=== PATIENT | female | born 1985 | race Two or more races ===

== ENCOUNTER 2016-07-23 16:13 | Emergency (ER) | payer OTHER ==
[2016-07-23 16:21] VITALS: BP 127/62; PULSE 88; TEMP 98.2; BMI 26.5
[2016-07-23] MEDS ORDERED: LORATADINE 10 MG TABLET PO ONE (17:03)
[2016-07-23] MEDS ORDERED: LORATADINE 10 MG TABLET ONE (17:06)
--- NOTE | 2016-07-23 17:07 | PDOC ---
History of Present Illness - General Chief Complaint: Migraine Headache Stated Complaint: HEADACHE Time Seen by Provider: 07/23/16 16:36 - History of Present Illness Initial Comments: 07/23/16 17:17 CHIEF COMPLAINT: headache, nausea in HISTORY OF PRESENT ILLNESS: 31 yo 3 mo female presents to [facility] with headache and nausea. Patient also reports having a "lump" to the right side of her neck x 5 days that her primary care doctor said was a lymph node. She states "it feels like a sinus headache" but denies any congestion or runny nose but does state that sometimes she "feels like she can't breathe at night". She denies any vomiting or diarrhea, fever, chills. No recent travel or sick contacts. PAST MEDICAL HISTORY: Denies past medical history FAMILY HISTORY: Denies SOCIAL HISTORY: Denies tobacco, alcohol, illicit drug use. SURGICAL HISTORY: Denies ALLERGIES: No known drug allergies REVIEW OF SYSTEMS General/Constitutional: Denies fever or chills. Denies weakness, weight change. HEENT: Denies change in vision. Denies ear pain or discharge. Denies sore throat. Cardiovascular: Denies chest pain or shortness of breath. Respiratory: Denies cough, wheezing, or hemoptysis. Gastrointestinal: Denies nausea, vomiting, diarrhea or constipation. Denies rectal bleeding. Genitourinary: Denies dysuria, frequency, or change in urination. Musculoskeletal: Denies joint or muscle swelling or pain. Denies neck or back pain. Skin and breasts: Denies rash or easy bruising. Neurologic: Denies headache, vertigo, loss of consciousness, or loss of sensation. PHYSICAL EXAM General Appearance: Well-appearing, appropriately dressed. No apparent distress , no intoxication. HEENT: EOMI, PERRLA, normal ENT inspection, normal voice, TMs normal, pharynx normal. No conjunctival pallor. No photophobia, scleral icterus. Neck: Nodule to R lateral neck, mobile. Supple. Trachea midline. No tenderness , rigidity, carotid bruit, stridor, or thyromegaly. Respiratory/Chest: Lungs CTAB. No shortness of breath, chest tenderness, respiratory distress, accessory muscle use. No crackles, rales, rhonchi, stridor , wheezing, dullness Cardiovascular: RRR. S1, S2. No JVD, murmur, bradycardia, tachycardia. Gastrointestinal/Abdominal: Normal bowel sounds. Abdomen soft, non-distended. No tenderness or rebound tenderness. Musculoskeletal/Extremities: Normal inspection. FROM of all extremities, normal capillary refill. Pelvis Stable. No CVA tenderness. No tenderness to extremities, pedal edema, swelling, erythema or deformity. Integumentary: Appropriate color, dry, warm. 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 Fully oriented, alert. Appropriate mood/affect. Motor strength 5/5. No appreciable EOM palsy, facial droop or sensory deficit. 07/23/16 18:14 Past History - Past Medical History Allergies/Adverse Reactions: Allergies Allergy/AdvReac Type Severity Reaction Status Date / Time No Known Allergies Allergy Verified 01/10/13 15:56 Home Medications: Ambulatory Orders Doxylamine/Pyridoxine HCl [Diclegis Dr 10-10 mg Tablet] 1 each PO ASDIR PRN #20 tablet. 07/23/16 Loratadine [Claritin -] 10 mg PO DAILY #10 tablet 07/23/16 Asthma: Yes - Immunization History Immunization Up to Date: Yes - Psycho/Social/Smoking Cessation Hx Anxiety: No Suicidal Ideation: No Smoking Status: No Smoking History: Never smoked Have you smoked in the past 12 months: No Number of Cigarettes Smoked Daily: 0 Information on smoking cessation initiated: No Hx Alcohol Use: No Drug/Substance Use Hx: No *Physical Exam - Vital Signs Last Vital Signs Temp Pulse Resp BP Pulse Ox 98.2 F 88 20 127/62 96 07/23/16 16:19 07/23/16 16:19 07/23/16 16:19 07/23/16 16:19 07/23/16 16:19 Medical Decision Making - Medical Decision Making 07/23/16 18:14 31 yo 3 mo female presents to [facility] with headache and nausea. Patient vital signs are stable. -10mg Claritin po daily -Diclegis po PRN nausea/vomiting Advised patient to take medications as prescribed. Advised patient to follow up with primary care doctor for further evaluation and possible biopsy of nodule. Advised patient of signs and symptoms for return to ER. PAtient verbalized undertanding and agrees to plan. *DC/Admit/Observation/Transfer Diagnosis at time of Disposition: Nausea/vomiting in Headache in Qualifiers: Trimester: first trimester Qualified Code(s): O26.891 - Other specified related conditions, first trimester - Discharge Dispostion Admit: No - Prescriptions Prescriptions: Loratadine [Claritin -] 10 mg PO DAILY #10 tablet Doxylamine/Pyridoxine HCl [Diclegis Dr 10-10 mg Tablet] 1 each PO ASDIR PRN #20 tablet.dr PRN Reason: Nausea And/Or Vomiting - Referrals Referrals: Lisandro Lomax [Primary Care Provider] - Carlos Taveras MD [Staff Physician] - - Patient Instructions Printed Discharge Instructions: Nausea of (Alternative Therapy), DI for Sinus Headache Additional Instructions: Please take medications as prescribed. You may try using the saline wash or netipot to help clear your sinuses along with the warm compress. Follow up with your primary care doctor for further evaluation of the nodule on your neck ; you may need a biopsy if it persists. As discussed, if you experience headache with palpitations and/or high blood pressure, persistent vomiting and inability to tolerate fluids, or any new or worsening symptoms, please return to the ER immediately. - Post Discharge Activity
== END 2016-07-23 18:29 | disposition home or self-care (01) ==
LOC: JERFT 16:13
DX: O26.891 Other specified pregnancy related conditions, first trimester (principal); R11.2 Nausea with vomiting, unspecified
CPT/HCPCS: 99281-25

== ENCOUNTER 2016-11-12 16:36 | Emergency (ER) | payer OTHER ==
[2016-11-12 16:54] VITALS: BMI 28.7
--- NOTE | 2016-11-12 19:36 | PDOC ---
History of Present Illness - General Chief Complaint: Chest Pain Stated Complaint: CHEST PAIN Time Seen by Provider: 11/12/16 19:13 History Source: Patient - History of Present Illness Initial Comments: 11/12/16 19:30 31 year old female with intermittent sharp pain to left 3rd intercostal space 6 episodes today. pain worse at night. denies pleuritic chest pain, nausea, vomiting, diaphoresis patient is 7 months history of GERD, asthma as a child. baby evaluated and cleared by L& D. patient is currently asymptomatic. Past History - Past Medical History Allergies/Adverse Reactions: Allergies Allergy/AdvReac Type Severity Reaction Status Date / Time No Known Allergies Allergy Verified 11/12/16 20:33 Home Medications: Ambulatory Orders Ranitidine HCl [Zantac] 150 mg PO DAILY #14 tablet 11/12/16 Asthma: Yes Cardiac Disorders: (heart murmurs) - Immunization History Immunization Up to Date: Yes - Psycho/Social/Smoking Cessation Hx Anxiety: No Suicidal Ideation: No Smoking Status: No Smoking History: Former smoker Have you smoked in the past 12 months: No Number of Cigarettes Smoked Daily: 0 Information on smoking cessation initiated: No Hx Alcohol Use: No Drug/Substance Use Hx: No Substance Use Type: None Cardiac Specific PMH - Complaint Specific PMHX Abdominal Aortic Aneurysm: No Angina: No Cardiac Arrhythmia: No Review of Systems - Review of Systems Able to Perform ROS?: Yes Is the patient limited Macedonian proficient: No Respiratory: No: Symptoms reported, See HPI, Cough, Orthopnea, Shortness of Breath, SOB with Exertion, SOB at Rest, Stridor, Wheezing, Productive cough, Hemoptysis, Other Cardiac (ROS): Yes: Chest Pain. No: Symptoms Reported, See HPI, Edema, Irregular Heart Rate, Lightheadedness, Palpitations, Syncope, Chest Tightness, Other ABD/GI: No: Symptoms Reported, See HPI, Abdominal Distended, Abd. Pain w/ defecation, Blood Streaked Bowels, Constipated, Diarrhea, Difficulty Swallowing , Nausea, Poor Appetite, Poor Fluid Intake, Rectal Bleeding, Vomiting, Indigestion, Abdominal cramping, Tarry Stools, Other : No: Symptoms Reported, See HPI, Burning, Dysuria, Discharge, Frequency, Flank Pain, Hematuria, Incontinence, Pain, Urgency, Testicular Mass, Testicular Swelling, Lesions, Testicular Pain, Other *Physical Exam - Vital Signs Last Vital Signs Temp Pulse Resp BP Pulse Ox 98.9 F 82 17 104/58 99 11/12/16 17:30 11/12/16 17:30 11/12/16 17:30 11/12/16 17:30 11/12/16 17:30 - Physical Exam General Appearance: Yes: Appropriately Dressed Respiratory/Chest: positive: Lungs Clear, Normal Breath Sounds. negative: Chest Tender, Respiratory Distress, Accessory Muscle Use, Labored Respiration, Rapid RR, Decreased Breath Sounds, Paradoxal Breathing, Crackles, Rales, Rhonchi , Stridor, Wheezing, Hyperresonant, Dullness, Plerual Rub, Other Cardiovascular: positive: Regular Rhythm, Regular Rate, S1, S2 Gastrointestinal/Abdominal: positive: Normal Bowel Sounds, Soft ED Treatment Course - Medications Given in the ED: ED Medications Discontinued Medications Generic Name Dose Route Start Last Admin Trade Name Freq PRN Reason Stop Dose Admin Acetaminophen 650 mg 11/12/16 19:40 11/12/16 20:08 Tylenol - PO 11/12/16 19:41 650 mg ONCE ONE Administration Ranitidine HCl 150 mg 11/12/16 19:38 11/12/16 20:08 Zantac - PO 11/12/16 19:39 150 mg ONCE ONE Administration Progress Note - Progress Note Progress Note: A: chest pain P: EKG PPI and reevaluate *DC/Admit/Observation/Transfer Diagnosis at time of Disposition: GERD (gastroesophageal reflux disease) Qualifiers: Esophagitis presence: esophagitis presence not specified Qualified Code(s): K21.9 - Gastro-esophageal reflux disease without esophagitis - Discharge Dispostion Disposition: HOME - Prescriptions Prescriptions: Ranitidine HCl [Zantac] 150 mg PO DAILY #14 tablet - Referrals Referrals: Annabella Michel MD [Staff Physician] - - Patient Instructions Printed Discharge Instructions: DI for Atypical Chest Pain Additional Instructions: Patient has been obstetrically cleared and is to follow up with Dr. Michel as previously scheduled. To stay well hydrated, you must drink at least 10 glasses of water a day. Return to the Labor and Delivery unit if your water breaks, you have vaginal bleeding, the baby is not moving, or contractions unrelieved with rest and hydration. Elevate HOB while asleep. no meals 1-2 hours prior to laying. take zantac 150mg daily as prescribed. follow up with your bobbin hauler as soon as possible return to the ED immediately : Shortness of breath or needing to breathe rapidly , Sharp, knife-like chest pain while taking a deep breath, Coughing or coughing up blood, rapid heart rate or worsening symptoms. - Post Discharge Activity
[2016-11-12] MEDS ORDERED: RANITIDINE HCL 150 MG TABLET (FP) PO ONE (19:38)
[2016-11-12] MEDS ORDERED: ACETAMINOPHEN 325 MG TABLET (FP) PO ONE (19:40)
[2016-11-12] MEDS ORDERED: RANITIDINE HCL 150 MG TABLET (FP) ONE (20:07)
[2016-11-12] MEDS ORDERED: ACETAMINOPHEN 325 MG TABLET (FP) ONE (20:07)
[2016-11-12 21:21] VITALS: BP 109/62; PULSE 79; TEMP 98.2
--- NOTE | 2016-11-15 16:36 | EKG ---
Test Reason : Blood Pressure : / mmHG Vent. Rate : 091 BPM Atrial Rate : 091 BPM P-R Int : 132 ms QRS Dur : 066 ms QT Int : 352 ms P-R-T Axes : 015 028 029 degrees QTc Int : 432 ms NORMAL SINUS RHYTHM NORMAL ECG NO PREVIOUS ECGS AVAILABLE Confirmed by ERIBERTO TOVAR MD ([id number]) on 11/15/2016 4:35:40 PM Referred By: Confirmed By:ERIBERTO TOVAR MD
== END 2016-11-12 21:22 | disposition home or self-care (01) ==
LOC: JER 16:36
DX: O99.89 Other specified diseases and conditions complicating pregnancy, childbirth and the puerperium (principal); K21.9 Gastro-esophageal reflux disease without esophagitis; R07.89 Other chest pain; Z3A.27 27 weeks gestation of pregnancy
CPT/HCPCS: 93005; 93010; 99282-25